=== PATIENT | female | born 2005 | race Two or more races ===

== ENCOUNTER 2023-07-07 08:44 | Emergency (ER) | payer BC, MEDICAID ==
[~2023-07-07] VITALS: Ht 167.6 cm; Wt 55.0 kg
[2023-07-07 08:52] VITALS: O2SAT 99
[2023-07-07 13:01] VITALS: BP 92/60; PULSE 79; RESP 18; TEMP 98.1
== END 2023-07-07 13:04 | disposition home or self-care (01) ==
LOC: ER 08:44
DX: M79.662 Pain in left lower leg (principal); E78.00 Pure hypercholesterolemia, unspecified
CPT/HCPCS: 73562; 81025; 93971; 99284